=== PATIENT | female | born 1980 | race Caucasian/White ===

== ENCOUNTER 2019-09-08 10:02 | Inpatient (IN) | payer OTHER ==
[~2019-09-08] VITALS: Ht 165.1 cm; Wt 120.2 kg
[2019-09-08 10:17] LABS: URINE BILIRUBIN NEGATIVE (Negative); URINE BLOOD NEGATIVE (Negative); URINE CLARITY CLEAR; URINE COLOR YELLOW; URINE GLUCOSE-RANDOM NEGATIVE (Negative); URINE KETONES NEGATIVE (Negative); URINE LEUKOCYTES-REFLEX NEGATIVE (Negative); URINE NITRITE-REFLEX NEGATIVE (Negative); URINE PROTEIN NEGATIVE (Negative); URINE SPECIFIC GRAVITY <= 1.005 (1.005-1.030); URINE UROBILINOGEN 0.2 E.U./dl (0.2-1.0)
[2019-09-08 10:19] VITALS: BP 146/87
[2019-09-08 10:43] LABS: ABSOLUTE EOSINOPHILS 0.1 thou/uL (0.0-0.7); ABSOLUTE LYMPHOCYTES 2.6 thou/uL (0.8-5.3); ABSOLUTE MONOCYTES 0.7 thou/uL (0.0-1.2); ABSOLUTE NEUTROPHILS 6.4 thou/uL (1.6-8.1); BASOPHILS 0.4 %; EOSINOPHILS 0.9 %; HEMATOCRIT 40.2 % (37.0-47.0); HEMOGLOBIN 13.7 gm/dL (12.0-15.0); LYMPHOCYTES 26.7 %; MCH 28.7 pg (26.0-34.0); MCV 84.5 fL (80.0-100.0); MONOCYTES 6.8 %; MPV 8.2 fl. (7.2-11.1); NUCLEATED RBCS 0 /100WBC; PLATELET COUNT* 334 thou/uL (150-400); POLYS 65.2 %; RBC 4.76 mil/uL (4.20-5.00); RDW-CV 14.5 % (10.5-14.5); WBC 9.8 thou/uL (4.0-11.0)
[2019-09-08 10:53] LABS: CALCIUM 8.8 mg/dL (8.5-10.1); CREATININE 0.6 mg/dL (0.6-1.3); POTASSIUM 4.4 mmol/L (3.5-5.1)
[2019-09-08 10:57] LABS: ALBUMIN 3.6 g/dL (3.4-5.0); TOTAL BILIRUBIN 0.4 mg/dL (<0.1-1.0); TOTAL PROTEIN 8.2 g/dL (6.4-8.2)
[2019-09-08 14:10] VITALS: BP 144/90
[2019-09-08 19:35] VITALS: BP 142/82
[2019-09-08 19:43] VITALS: BP 142/82
[2019-09-09] VITALS: BP 117/71
--- NOTE | 2019-09-09 05:46 | NUR ---
PT REPORTS PAIN 6/10 IN ABDOMEN A SLIGHT PRESSURE, RECEIVED HYDROCODONE 2X AND HAS A SLIGHT RASH IN INNER THIGH AREA SAYS ITCHES, APPLIED COLD TOO. SHE IS UP AD RAINA AND ALERT AND ORIENTED. SHE RECEIVED ALL MEDS SCHEDULED. WILL CONTINUE TO FOLLOW PLAN OF CARE.
--- NOTE | 2019-09-09 07:46 | OP ---
[facility] [address] [place] [address] OPERATIVE REPORT Name: DEBBIE RUBIO Room: [address] IN M.R.#: [id number] Admission: 09/08/19 Attend Phys: Alexy Amaya Discharge: Date of : 82 Report #: [id number] THIS REPORT FOR: //name// cc: BHAVYA Downs family physician/PCP BHAVYA Downs family physician/PCP ~ THIS REPORT FOR: //name// CC: BHAVYA physician/PCP Alexy Amaya DATE OF SERVICE: 09/08/2019 PREOPERATIVE DIAGNOSIS: Acute appendicitis. POSTOPERATIVE DIAGNOSIS: Acute appendicitis. OPERATION: Laparoscopic appendectomy. SURGEON: Alexy Amaya MD ANESTHESIA: General. ESTIMATED BLOOD LOSS: Minimal. SPECIMEN: Appendix. DESCRIPTION OF PROCEDURE: After informed consent was obtained, the patient was brought to the operating room and placed supine. SCDs were placed and working, preoperative antibiotics were administered, general anesthesia was induced. The abdomen was prepped and draped in the usual sterile fashion. A 10 mm incision was made at the umbilicus. Fascia was incised and a trocar was placed. Pneumoperitoneum was established. A right upper quadrant and left lower quadrant 5 mm port was placed under direct vision. The appendix was in the right lower quadrant. This was severely inflamed, but not perforated. The appendix was dissected around. The mesoappendix was ligated with the LigaSure device. The base of the appendix was then stapled with a MELODY blue load stapler. It was then removed through an Endopouch. The area was then irrigated. The ports were removed under direct vision. The skin was closed with 4-0 Monocryl. The fascia was closed with [id number] 0 Vicryl prior to closing the skin. Incisions were dressed with Dermabond. COMPLICATIONS: [place] [address] OPERATIVE REPORT Name: DEBBIE RUBIO Room: [address]#: [id number] Admission: 09/08/19 Attend Phys: Alexy Amaya Discharge: Date of : 82 Report #: [id number] DISPOSITION: The patient was taken to recovery in satisfactory condition. <ELECTRONICALLY SIGNED> By: Alexy Aamya MD 09/09/19 0746 [id number] [id number] Amaya MD /nt
[2019-09-09 08:45] VITALS: BP 144/86
[2019-09-09 12:38] VITALS: BP 144/86
[2019-09-09 12:45] VITALS: BP 144/86
[2019-09-09] MEDS ORDERED: NORCO 5-325 TA1 EAC1 PO (12:49)
[2019-09-09] MEDS ORDERED: PREDNISONE 5 MG5 M1 PO (12:50)
[2019-09-09] MEDS ORDERED: TRIAMCINOLONE16.9 ML TOP (12:53)
--- NOTE | 2019-09-09 15:45 | NUR ---
I ASSUMED CARE OF THE PATIENT AT 0700. SHE IS ALERT AND ORIENTED X4 AND IS UP AD RAINA. BED IS IN THE LOW LOCKED POSITION AND CALL LIGHT IS IN REACH. HOURLY ROUNDING IS COMPLETED AND PATIENT NEEDS ARE MET. PAIN IS MANAGED WITH PRN MEDS. SHE IS DISCHARGED TO HOME WITH HER AT 1340. LAP SITES ARE C/D/I. SCRIPTS ARE GIVEN AND DISCHARGE IS UNDERSTOOD.
--- NOTE | 2019-09-12 14:07 | PATH ---
[address] [address] PATHOLOGY RPT PROCEDURE Name: DEBBIE RUBIO Room: [address] IN M.R.#: [id number] Admission: 09/08/19 Date of : 82 Discharge: 09/09/19 Report #: [id number] Path Case #: [id number] [facility] Accession Number: [id number] . 01 Material submitted: . appendix - APPENDIX . 01 Clinical history: . Pre-op diagnosis: Appendicitis Post-op diagnosis: Acute appendicitis . 02 Diagnosis: Appendix: - Chronic and acute appendicitis, periappendicitis and serositis with serosal fibrosis. . (RIDDHI:mml; 09/12/2019) QL 09/12/2019 1116 Local . 02 Electronically signed: . Christopher Pereyra MD, Pathologist NPI- [id number] . 01 Gross description: . The specimen is received in formalin, labeled "Debbie Rubio, appendix". Received is a vermiform appendix measuring 5.5 cm in length by up to 1.0 cm in diameter with a large amount of attached mesoappendix. The serosal surface is pale boswell and smooth to slightly shaggy in appearance. The surgical margin is closed with a line of jamie. The jamie are removed the new margin is inked black. Sectioning reveals a pinpoint to slightly patent lumen filled with a slight amount of possible fecal material. The specimen is submitted entirely from proximal to distal aspects in cassettes A1 through A4, with the proximal margin and bisected tip submitted in cassette A1. (CAA; 09/11/2019) QAC/QAC 09/12/2019 1116 Local . 02 Pathologist provided ICD-10: K35.80, K36 . 02 CPT . 267836 Specimen Comment: A courtesy copy of this report has been sent to [phone] Specimen Comment: Report sent to Performed at: [address], [place] [id number] MD Christopher Subramanian MD Phone: [phone] [place] [address] PATHOLOGY RPT PROCEDURE Name: DEBBIE RUBIO Room: [address] IN M.R.#: [id number] Admission: 09/08/19 Date of : 82 Discharge: 09/09/19 Report #: [id number] Path Case #: [id number] Performed at: [address] [place] [id number] MD Christopher Pereyra MD Phone: [phone]
== END 2019-09-09 13:40 | disposition home or self-care (01) | DRG 342 ==
LOC: M.ERS 10:02 → M.TBA-ER 13:12 → M.ORTHSURG 13:12
PROVIDERS: Physician Assistant; ADMIT Surgery
PROC: 0DTJ4ZZ Resection of Appendix, Percutaneous Endoscopic Approach (ICD-10-PCS; principal; 2019-09-08)
DX: K35.80 Unspecified acute appendicitis (principal); Z68.41 Body mass index [BMI] 40.0-44.9, adult; Z90.710 Acquired absence of both cervix and uterus; Z87.891 Personal history of nicotine dependence; Z79.899 Other long term (current) drug therapy; E66.01 Morbid (severe) obesity due to excess calories